=== PATIENT | male | born 1990 ===

== ENCOUNTER 2025-01-12 16:56 | Emergency (ER) | payer OTHER, SELFPAY ==
--- NOTE | ~2025-01-12 | CT_ITS ---
CT HEAD NON-CONTRAST Clinical History: syncope Comparison: None Technique: Unenhanced axial images skull base to vertex Coronal, sagittal reformats CT images acquired with automatic exposure control for dose reduction DLP: 681 mGy-cm Findings: Sulci, ventricles: Unremarkable. No intracerebral hemorrhage. No evidence acute territorial infarct. No mass effect, midline shift. Bony calvarium intact. Visualized paranasal sinuses: Clear. Mastoid air cells: Clear. IMPRESSION: 1. No acute intracranial findings. Reviewed, dictated and finalized at location R.
--- NOTE | ~2025-01-12 | XR_ITS ---
EXAMINATION: XR chest 2V, 01/12/2025 17:32 CDT HISTORY: syncopy COMPARISON: No comparisons available. Technique: 2 views obtained. Findings: The lungs are clear, no effusion. No pneumothorax. Heart is normal size. Mediastinal and hilar contours are within normal limits. Bony thorax no acute abnormality. Impression: No acute cardiopulmonary abnormality. Reviewed, dictated and finalized at location P. Impression: No acute cardiopulmonary abnormality.
--- NOTE | ~2025-01-12 | CT_ITS ---
EXAMINATION: CTA brain carotid DATE: 01/12/2025 22:42 INDICATION: Right-sided headache. Neck pain. Dizziness. TECHNIQUE: Computed tomographic angiography (CTA) of the head was performed with 100 mL Omnipaque-350 intravenous contrast. CTA of the neck was performed with intravenous contrast. Automated exposure control and iterative reconstruction technique were employed. The dose-length product was 1020.04 mGy-cm. Maximum intensity projection and volume rendered 3D-reconstructions were created by the technologist on a separate workstation. COMPARISON: Head CT 01/12/2025 FINDINGS: HEAD CTA: There is no intracranial hemorrhage, acute infarction, or abnormal intracranial mass lesion. The ventricles are normal in size. There is mild mucosal thickening in the paranasal sinuses. The mastoid air cells are normal. The orbits are normal. The vertebral arteries are codominant. There is no significant stenosis of basilar artery or the posterior cerebral arteries. The posterior communicating arteries are normal. There is no significant stenosis of the intracranial internal carotid arteries or anterior or middle cerebral arteries. Anterior communicating artery is normal. There is no aneurysm. NECK CTA: There are no pathologically enlarged lymph nodes. There is no significant stenosis of the vertebral arteries. There is no visible plaque in the proximal internal carotid arteries. There is 0% stenosis of the proximal right internal carotid artery relative to normal distal artery lumen diameter (NASCET criteria). There is 0% stenosis of the proximal left internal carotid artery relative to normal distal artery lumen diameter. There is moderate cervical spondylosis. T1 is a butterfly segment. IMPRESSION: 1. Normal brain. 2. No aneurysm or significant intracranial arterial stenosis. 3. 0% stenosis of the proximal internal carotid arteries relative to normal distal artery lumen diameters (NASCET criteria). Reviewed, dictated and finalized at location E. IMPRESSION: 1. Normal brain. 2. No aneurysm or significant intracranial arterial stenosis. 3. 0% stenosis of the proximal internal carotid arteries relative to normal dis corey artery lumen diameters (NASCET criteria).
[2025-01-12 16:58] VITALS: BP 138/85; PULSE 79; RESP 16; TEMP 36.6; O2SAT 100
--- NOTE | 2025-01-12 17:02 | ECG_ITS ---
Test Date: 2025-01-12 17:06:05 Measurements Intervals [place] Rate: 78 P: 5 CA: 141 QRS: 82 QRSD: 109 T: 10 QT: 358 QTc: 408 Interpretive Statements SINUS RHYTHM NONSPECIFIC ST & T-WAVE ABNORMALITY- INFERIOR LEADS BASELINE ARTIFACT- I, II, V4-V6 BORDERLINE ECG No previous ECG available for comparison Electronically Signed On 01-12-2025 17:40:20 CDT by Rolan Gregory D.O.
[2025-01-12 17:19] LABS: Hematocrit 41.9 % (42.0-52.0); Hemoglobin 14.8 g/dL (14.0-18.0); Immature Granulocyte Percent A 0.1 % (0-0.5); Lymphocytes Absolute Auto 2.72 K/mm3 (0.9-3.2); Mean Corpuscular HGB Conc 35.3 g/dl (32-36); Mean Corpuscular Hemoglobin 32.0 pg (26-34); Mean Corpuscular Volume 90.5 fl (80-100); Nucleated Red Blood Cells Absolute Auto 0.000 K/mm3 (0.0-0.012); Nucleated Red Blood Cells Perc 0.0 % (0.0-0.2); Platelet Count Result 319 k/mm3 (150-375); Red Blood Count 4.63 M/mm3 (4.6-6.20); White Blood Count 7.3 K/mm3 (4.5-10.0)
[2025-01-12 17:29] LABS: Alanine Aminotransferase 56 U/L (6-50); Albumin Level 4.8 g/dL (3.5-5.1); Alkaline Phosphatase 62 U/L (38-126); Anion Gap 8 mmol/L (4-12); Aspartate Amino Transferase 36 U/L (17-59); Bilirubin,Total 0.8 mg/dL (0.2-1.3); Blood Urea Nitrogen 17 mg/dL (9-20); Calcium 9.5 mg/dL (8.4-10.2); Carbon Dioxide 28 mmol/L (22-30); Chloride 101 mmol/L (98-107); Estimated CRCL calculation 94 ml/min; Estimated Glomerular Filt Rate > 60; Glucose 94 mg/dL (65-110); Potassium 4.1 mmol/L (3.4-5.0); Sodium 137 mmol/L (137-145); Total Protein 8.1 g/dL (6.3-8.2)
--- NOTE | 2025-01-12 18:21 | ED_ITS ---
HPI - General Adult General Chief complaint: Syncope <Lilibeth Pina August, MEDICAL BILLING COORDINATOR - Last Filed: 01/12/25 18:55> Stated complaint: syncopy <Lilibeth Pina August, - Last Filed: 01/12/25 18:55> Time Seen by Provider: 01/12/25 18:21 <Lilibeth Pina August, - Last Filed: 01/12/25 18:55> Focused HPI: Niles Musa is a 34 y/o male reports of having a syncope episode about 5 days ago, it was witnessed by a friend, he was starting to fall and was caught. He was then walked outside and then he went completely out and was layed down where he was out for about 10-15 seconds and when he came to he was diaphoretic, and confused. Since this he has had some intermittent blurry vision, headaches, dizziness, feeling light headed, numbness on the right side of neck. GENERAL: Well-appearing, well-nourished, and in no acute distress. HEAD: Normocephalic, atraumatic. CHEST: Clear to auscultation. ?No respiratory distress. HEART: Regular rate and rhythm.? NEURO: ?Alert and oriented x3. Patient screened in triage and initial orders placed.? ?Additional care and disposition to be based upon?diagnostic testing and treatment. <Lilibeth Pina August, - Last Filed: 01/12/25 18:55> History of Present Illness HPI narrative: Patient presents with report intermittent dizziness. He describes it as a lightheaded sensation. Denies any sensation that he is falling when otherwise rest. Denies any gait instability. Denies any rotation or spinning movement your cell for room. Denies any ear pain tinnitus or hearing changes. Did have an episode at concert 6days ago where he initially experienced near syncope and relied on his he started to fall on but otherwise was conscious and she assisted him in leaving the concert venue but once he outside of the concert venue he did have an episode of syncope and that he lost muscle tone and consciousness otherwise did not fall or strike his head. No ethanol at the time this injury although he had had 1 hit of marijuana. Reports that while he does not use marijuana regularly, did not necessarily feel like he was stoned. There had been no acute position changes prior to him feeling symptomatic initially although rather he had been standing for a while several hours at that point. reports that he lost consciousness and muscle for approximately 10-15 seconds this and then pull in his back to his baseline mentation. No report of any demonstrated seizure activity and but he was not incontinent of bowel bladder nor did he have any tongue trauma. 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 He states that he feels like he has decreased sensation in his right face. He has also had right head and neck paresthesias and feels like there is a photosensitivity component. His headache is located at his right brow as right posterior scalp. No fevers or eye pain. No history CHF. He did feel short breath. He has felt like his depth perception is off. He has felt fatigued/weak. Lives with who has not been having any symptoms. <Lynne Rodriguez MD - Last Filed: 01/14/25 08:40> Related Data Allergies/adverse reactions: Allergies Allergy/AdvReac Type Severity Reaction Status Date / Time No Known Allergies Allergy Verified 01/12/25 17:02 <Lilibeth Iqbal MEDICAL BILLING COORDINATOR - Last Filed: 01/12/25 18:55> [facility] Social History Social History: Social History (Updated 01/14/25 @ 08:28 by Lynne Rodriguez MD) Social History: [place] Substance use type: marijuana Other substance usage details: occasional Living arrangements: with family Additional living arrangements comments: Occupation/Education: occupation Additional occupation/education comments: client delivery specialist; also teaches children music <Lilibeth Iqbal, MEDICAL BILLING COORDINATOR - Last Filed: 01/12/25 18:55> Exam 2 Narrative: GENERAL: Well-appearing, well-nourished, and in no acute distress. HEAD: Normocephalic, atraumatic. EYES: Non injected, non icteric. PERRL; EOMI without nystagmus horizontally or vertically. ENT: Nares clear, no rhinorrhea or epistaxis. Gross auditory acuity intact. Mild erythema in the right external auditory canal but with no vesicles, effusion, bulging, perforated TM which is otherwise visualized and normal/pearly ch. Left ear with scant cerumen; easily visualized TM however. No abnormalities in left EAC. NECK: Supple. No meningismus. Performs full ROM. CHEST: Speaking in full sentences. No respiratory distress. HEART: Regular rate and rhythm. . ABDOMEN: Soft, nondistended. EXTREMITIES: Normal range of motion. Moving all extremities x4. SKIN: Warm, dry, no rash. NEURO: No focal deficits. Alert and oriented. Answering questions. Following commands. Normal speech without aphasia or dysarthria. patient reports diminished sensation in first branch of cranial nerve 5 (i.e. V1) on the right but otherwise symmetric motor engagement bilaterally of this cranial nerve ( no loss of nasolabial fold, able to furrow brow symmetrically, and closes eyes tightly ). PSYCH: Normal mood and affect. <Lynne Rodriguez MD - Last Filed: 01/14/25 08:40> Course Vital Signs Vital signs: Vital Signs Temperature 97.8 F 01/12/25 16:58 Pulse Rate 79 01/12/25 16:58 Respiratory Rate 16 01/12/25 16:58 Blood Pressure 138/85 01/12/25 16:58 Pulse Oximetry 100 01/12/25 16:58 Temperature 97.8 F 01/12/25 16:58 Pulse Rate 63 01/13/25 00:43 Respiratory Rate 15 01/13/25 00:43 Blood Pressure 104/70 01/13/25 00:43 Pulse Oximetry 99 01/13/25 00:43 <Lilibeth Iqbal APRN - Last Filed: 01/12/25 18:55> Vital Signs Temperature 97.8 F 01/12/25 16:58 Pulse Rate 79 01/12/25 16:58 Respiratory Rate 16 01/12/25 16:58 Blood Pressure 138/85 01/12/25 16:58 Pulse Oximetry 100 01/12/25 16:58 Temperature 97.8 F 01/12/25 16:58 Pulse Rate 63 01/13/25 00:43 Respiratory Rate 15 01/13/25 00:43 Blood Pressure 104/70 01/13/25 00:43 Pulse Oximetry 99 01/13/25 00:43 <Lynne Rodriguez MD - Last Filed: 01/14/25 08:40> Medical Decision Making MDM Narrative Medical decision making narrative: Patient presents with report of dizziness as well as some right head and neck pain paresthesia particularly occurring in this area as well as his right forehead. No neurological deficits on exam. Patient also had approximately 1 week ago what started as a near syncopal episode was what sounds to be a syncopal episode given the combination of lack of muscle tone and consciousness for a brief, less 15 seconds. Otherwise without witnessed seizure activity, incontinence, or tongue trauma. In the emergency department they are afebrile with vital signs within normal limits. D-dimer within normal limits. Will not proceed with further workup for this. CBC with mildly abnormal hematocrit but hemoglobin is normal. [place] Syncope Rule: Congestive heart failure history: No Hematocrit <30%: 0 EKG abnormal (changed or any non-sinus rhythm): 0 SOB symptoms: No SBP <90mmHg at triage: 0 CT brain noncontrast normal as below. DIFFERENTIAL DIAGNOSES Considered various etiologies of syncope/near-syncope including cardiogenic, vasovagal, orthostatic, etc.. In particular the symptoms sound consistent with vagal etiology given he had been standing for several hours preceding this event. Considered the effects of trauma. Patient's head pain is likely to be benign such as tension headache, migraine, or other headache of nonemergent etiology. Low suspicion for subarachnoid hemorrhage given patient has had a has been not maximal at onset. Unlikely subdural or epidural hematoma given no history of trauma. Unlikely meningitis given afebrile, no meningismus. Unlikely temporal arteritis given patient's age and lack of tenderness in the confucianist area. Likely acute angle glaucoma blood given PERRL and no eye pain. Unlikely carbon monoxide poisoning given no other house members with similar symptoms. Central causes: infection ( encephalitis, meningitis, cerebritis); vertebrobasilar arterial insufficiency, subclavian steal syndrome, cerebellar or brainstem hemorrhage or infarction, vertebrobasilar migraine, trauma ( temporal bone fracture, post concussive syndrome); tumor (brainstem or cerebellum); MS; temporal lobe epilepsy Peripheral causes: Foreign body, cerumen impaction, acute otitis media, labyrinthitis, benign paroxysmal positional vertigo, Meniere's disease, vestibular neuronitis, perilymphatic fistula, trauma, motion sickness, acoustic neuroma, ototoxic medications Considered shingles including [place] Laurent and Severance palsy . Meclizine given as first line agent although symptoms do not sound consistent with BPPV.. Isolated ALT elevation with no prior for comparison. Urinalysis unremarkable. Normal troponin. Orthostatics are reviewed and acceptable. More importantly, he reports that he you was asymptomatic during this assessment. When patient is reassessed at 11:15 p.m. he states that his symptoms have improved. We will defer ordering second-line agent. The exact etiology of patient's symptoms remains unclear after his extensive workup although he is otherwise feeling better. I did advise he follow up. Did state that he felt better after meclizine although his symptoms were not consistent with BPPV this is relatively safe medication and so he was discharged with a prescription for this. Encouraged follow-up in the outpatient setting and return with any new or worsening symptoms. Otherwise stable for discharge. <Lynne Rodriguez MD - Last Filed: 01/14/25 08:40> Vital Signs Vital Signs: Vital Signs Temperature 97.8 F 01/12/25 16:58 Pulse Rate 79 01/12/25 16:58 Respiratory Rate 16 01/12/25 16:58 Blood Pressure 138/85 01/12/25 16:58 Pulse Oximetry 100 01/12/25 16:58 Temperature 97.8 F 01/12/25 16:58 Pulse Rate 63 01/13/25 00:43 Respiratory Rate 15 01/13/25 00:43 Blood Pressure 104/70 01/13/25 00:43 Pulse Oximetry 99 01/13/25 00:43 <Lilibeth Iqbal APRN - Last Filed: 01/12/25 18:55> Vital Signs Temperature 97.8 F 01/12/25 16:58 Pulse Rate 79 01/12/25 16:58 Respiratory Rate 16 01/12/25 16:58 Blood Pressure 138/85 01/12/25 16:58 Pulse Oximetry 100 01/12/25 16:58 Temperature 97.8 F 01/12/25 16:58 Pulse Rate 63 01/13/25 00:43 Respiratory Rate 15 01/13/25 00:43 Blood Pressure 104/70 01/13/25 00:43 Pulse Oximetry 99 01/13/25 00:43 <Lynne Rodriguez MD - Last Filed: 01/14/25 08:40> Lab Data Lab results reviewed: Yes I reviewed the patient's lab results. <Lynne Rodriguez MD - Last Filed: 01/14/25 08:40> Result diagrams: 01/12/25 17:14 01/12/25 17:14 <Lilibeth Iqbal APRN - Last Filed: 01/12/25 18:55> Labs: Lab Results 01/12/25 01/12/25 01/12/25 Range/Units 17:13 17:13 17:14 WBC 7.3 (4.5-10.0) K/mm3 RBC 4.63 (4.6-6.20) M/mm3 Hgb 14.8 (14.0-18.0) g/dL Hct 41.9 L (42.0-52.0) % MCV 90.5 (80-100) fl MCH 32.0 (26-34) pg MCHC 35.3 (32-36) g/dl RDW 11.9 (11.5-14.5) % Plt Count 319 (150-375) k/mm3 MPV 9.1 (7.4-10.4) fl Immature Gran % (Auto) 0.1 (0-0.5) % Neut % (Auto) 53.8 (45.5-73.1) % Lymph % (Auto) 37.1 (18.3-44.2) % Evangeline % (Auto) 7.2 (2.6-8.5) % Eos % (Auto) 1.1 (0-4.4) % Baso % (Auto) 0.7 (0.2-1.2) % Lymph # (Auto) 2.72 (0.9-3.2) K/mm3 Evangeline # (Auto) 0.5 (0.1-0.6) K/mm3 Eos # (Auto) 0.1 (0-0.3) K/mm3 Baso # (Auto) 0.1 (0.0-0.1) K/mm3 Abs Immat Gran (auto) 0.01 (0.00-0.031) K/mm3 Absolute Neuts (auto) 3.9 (1.3-6.7) K/mm3 Absolute Nucleated RBC 0.000 (0.0-0.012) K/mm3 Nucleated RBC % 0.0 (0.0-0.2) % D-Dimer < 0.27 (<0.48) ug/mL Sodium 137 (137-145) mmol/L Potassium 4.1 (3.4-5.0) mmol/L Chloride 101 (98-107) mmol/L Carbon Dioxide 28 (22-30) mmol/L Anion Gap 8 (4-12) mmol/L BUN 17 (9-20) mg/dL Creatinine 1.08 (0.7-1.3) mg/dL Estim Creat Clear Calc 94 ml/min Estimated GFR > 60 (59 - ) Glucose 94 (65-110) mg/dL Calcium 9.5 (8.4-10.2) mg/dL Magnesium 2.0 (1.6-2.3) mg/dL Total Bilirubin 0.8 (0.2-1.3) mg/dL AST 36 (17-59) U/L ALT 56 H (6-50) U/L Alkaline Phosphatase 62 (38-126) U/L Troponin I < 0.012 Cancelled (0.000-0.034) ng/mL NT-Pro-B Natriuret Pep < 20 (19.9-100) pg/mL Total Protein 8.1 (6.3-8.2) g/dL Albumin 4.8 (3.5-5.1) g/dL Urine Color (Yellow) Urine Appearance (Clear) Urine pH (5.0-9.0) Ur Specific [place] (1.001-1.035) Urine Protein (Negative) mg/dL Urine Glucose (UA) (Negative) mg/dL Urine Ketones (Negative) mg/dL Ur Blood (Man) (Negative) Urine Nitrate (Negative) Urine Bilirubin (Negative) Urine Urobilinogen (<2.0) mg/dL Leukocyte Esterase Rfl (Negative) RANI/UL 01/12/25 Range/Units 21:30 WBC (4.5-10.0) K/mm3 RBC (4.6-6.20) M/mm3 Hgb (14.0-18.0) g/dL Hct (42.0-52.0) % MCV (80-100) fl MCH (26-34) pg MCHC (32-36) g/dl RDW (11.5-14.5) % Plt Count (150-375) k/mm3 MPV (7.4-10.4) fl Immature Gran % (Auto) (0-0.5) % Neut % (Auto) (45.5-73.1) % Lymph % (Auto) (18.3-44.2) % Evangeline % (Auto) (2.6-8.5) % Eos % (Auto) (0-4.4) % Baso % (Auto) (0.2-1.2) % Lymph # (Auto) (0.9-3.2) K/mm3 Evangeline # (Auto) (0.1-0.6) K/mm3 Eos # (Auto) (0-0.3) K/mm3 Baso # (Auto) (0.0-0.1) K/mm3 Abs Immat Gran (auto) (0.00-0.031) K/mm3 Absolute Neuts (auto) (1.3-6.7) K/mm3 Absolute Nucleated RBC (0.0-0.012) K/mm3 Nucleated RBC % (0.0-0.2) % D-Dimer (<0.48) ug/mL Sodium (137-145) mmol/L Potassium (3.4-5.0) mmol/L Chloride (98-107) mmol/L Carbon Dioxide (22-30) mmol/L Anion Gap (4-12) mmol/L BUN (9-20) mg/dL Creatinine (0.7-1.3) mg/dL Estim Creat Clear Calc ml/min Estimated GFR (59 - ) Glucose (65-110) mg/dL Calcium (8.4-10.2) mg/dL Magnesium (1.6-2.3) mg/dL Total Bilirubin (0.2-1.3) mg/dL AST (17-59) U/L ALT (6-50) U/L Alkaline Phosphatase (38-126) U/L Troponin I (0.000-0.034) ng/mL NT-Pro-B Natriuret Pep (19.9-100) pg/mL Total Protein (6.3-8.2) g/dL Albumin (3.5-5.1) g/dL Urine Color Yellow (Yellow) Urine Appearance Clear (Clear) Urine pH 6.5 (5.0-9.0) Ur Specific [place] 1.017 (1.001-1.035) Urine Protein Negative (Negative) mg/dL Urine Glucose (UA) Negative (Negative) mg/dL Urine Ketones Negative (Negative) mg/dL Ur Blood (Man) Negative (Negative) Urine Nitrate Negative (Negative) Urine Bilirubin Negative (Negative) Urine Urobilinogen 0.2 (<2.0) mg/dL Leukocyte Esterase Rfl Negative (Negative) RANI/UL <Lilibeth EmirDaren Iqbal, MEDICAL BILLING COORDINATOR - Last Filed: 01/12/25 18:55> Lab Results 01/12/25 01/12/25 01/12/25 Range/Units 17:13 17:13 17:14 WBC 7.3 (4.5-10.0) K/mm3 RBC 4.63 (4.6-6.20) M/mm3 Hgb 14.8 (14.0-18.0) g/dL Hct 41.9 L (42.0-52.0) % MCV 90.5 (80-100) fl MCH 32.0 (26-34) pg MCHC 35.3 (32-36) g/dl RDW 11.9 (11.5-14.5) % Plt Count 319 (150-375) k/mm3 MPV 9.1 (7.4-10.4) fl Immature Gran % (Auto) 0.1 (0-0.5) % Neut % (Auto) 53.8 (45.5-73.1) % Lymph % (Auto) 37.1 (18.3-44.2) % Evangeline % (Auto) 7.2 (2.6-8.5) % Eos % (Auto) 1.1 (0-4.4) % Baso % (Auto) 0.7 (0.2-1.2) % Lymph # (Auto) 2.72 (0.9-3.2) K/mm3 Evangeline # (Auto) 0.5 (0.1-0.6) K/mm3 Eos # (Auto) 0.1 (0-0.3) K/mm3 Baso # (Auto) 0.1 (0.0-0.1) K/mm3 Abs Immat Gran (auto) 0.01 (0.00-0.031) K/mm3 Absolute Neuts (auto) 3.9 (1.3-6.7) K/mm3 Absolute Nucleated RBC 0.000 (0.0-0.012) K/mm3 Nucleated RBC % 0.0 (0.0-0.2) % D-Dimer < 0.27 (<0.48) ug/mL Sodium 137 (137-145) mmol/L Potassium 4.1 (3.4-5.0) mmol/L Chloride 101 (98-107) mmol/L Carbon Dioxide 28 (22-30) mmol/L Anion Gap 8 (4-12) mmol/L BUN 17 (9-20) mg/dL Creatinine 1.08 (0.7-1.3) mg/dL Estim Creat Clear Calc 94 ml/min Estimated GFR > 60 (59 - ) Glucose 94 (65-110) mg/dL Calcium 9.5 (8.4-10.2) mg/dL Magnesium 2.0 (1.6-2.3) mg/dL Total Bilirubin 0.8 (0.2-1.3) mg/dL AST 36 (17-59) U/L ALT 56 H (6-50) U/L Alkaline Phosphatase 62 (38-126) U/L Troponin I < 0.012 Cancelled (0.000-0.034) ng/mL NT-Pro-B Natriuret Pep < 20 (19.9-100) pg/mL Total Protein 8.1 (6.3-8.2) g/dL Albumin 4.8 (3.5-5.1) g/dL Urine Color (Yellow) Urine Appearance (Clear) Urine pH (5.0-9.0) Ur Specific [place] (1.001-1.035) Urine Protein (Negative) mg/dL Urine Glucose (UA) (Negative) mg/dL Urine Ketones (Negative) mg/dL Ur Blood (Man) (Negative) Urine Nitrate (Negative) Urine Bilirubin (Negative) Urine Urobilinogen (<2.0) mg/dL Leukocyte Esterase Rfl (Negative) RANI/UL 01/12/25 Range/Units 21:30 WBC (4.5-10.0) K/mm3 RBC (4.6-6.20) M/mm3 Hgb (14.0-18.0) g/dL Hct (42.0-52.0) % MCV (80-100) fl MCH (26-34) pg MCHC (32-36) g/dl RDW (11.5-14.5) % Plt Count (150-375) k/mm3 MPV (7.4-10.4) fl Immature Gran % (Auto) (0-0.5) % Neut % (Auto) (45.5-73.1) % Lymph % (Auto) (18.3-44.2) % Evangeline % (Auto) (2.6-8.5) % Eos % (Auto) (0-4.4) % Baso % (Auto) (0.2-1.2) % Lymph # (Auto) (0.9-3.2) K/mm3 Evangeline # (Auto) (0.1-0.6) K/mm3 Eos # (Auto) (0-0.3) K/mm3 Baso # (Auto) (0.0-0.1) K/mm3 Abs Immat Gran (auto) (0.00-0.031) K/mm3 Absolute Neuts (auto) (1.3-6.7) K/mm3 Absolute Nucleated RBC (0.0-0.012) K/mm3 Nucleated RBC % (0.0-0.2) % D-Dimer (<0.48) ug/mL Sodium (137-145) mmol/L Potassium (3.4-5.0) mmol/L Chloride (98-107) mmol/L Carbon Dioxide (22-30) mmol/L Anion Gap (4-12) mmol/L BUN (9-20) mg/dL Creatinine (0.7-1.3) mg/dL Estim Creat Clear Calc ml/min Estimated GFR (59 - ) Glucose (65-110) mg/dL Calcium (8.4-10.2) mg/dL Magnesium (1.6-2.3) mg/dL Total Bilirubin (0.2-1.3) mg/dL AST (17-59) U/L ALT (6-50) U/L Alkaline Phosphatase (38-126) U/L Troponin I (0.000-0.034) ng/mL NT-Pro-B Natriuret Pep (19.9-100) pg/mL Total Protein (6.3-8.2) g/dL Albumin (3.5-5.1) g/dL Urine Color Yellow (Yellow) Urine Appearance Clear (Clear) Urine pH 6.5 (5.0-9.0) Ur Specific [place] 1.017 (1.001-1.035) Urine Protein Negative (Negative) mg/dL Urine Glucose (UA) Negative (Negative) mg/dL Urine Ketones Negative (Negative) mg/dL Ur Blood (Man) Negative (Negative) Urine Nitrate Negative (Negative) Urine Bilirubin Negative (Negative) Urine Urobilinogen 0.2 (<2.0) mg/dL Leukocyte Esterase Rfl Negative (Negative) RANI/UL <Lynne Rodriguez MD - Last Filed: 01/14/25 08:40> Imaging Data Radiologist's impression: Impressions Chest X-Ray 01/12/25 17:44 Impression: No acute cardiopulmonary abnormality. Head CT 01/12/25 18:55 IMPRESSION: 1. No acute intracranial findings. CTA Neck Stat Rad: unremarkable arterial structures without flow limitation. No acute finding CTA head stat rad: No large vessel occlusion. Unremarkable arteries are seen. If there is concern for stroke recommend on MRI <Lynne Rodriguez MD - Last Filed: 01/14/25 08:40> ECG Data EKG #1: Attestation: I personally reviewed and interpreted this ECG as follows: < Lynne Rodriguez MD - Last Filed: 01/14/25 08:40> ECG completion date: 01/12/25 <Lynne Rodriguez MD - Last Filed: 01/14/25 08:40> ECG completion time: 17:06 <Lynne Rodriguez MD - Last Filed: 01/14/25 08:40> Interpretation: Normal sinus rhythm at a rate of 78 beats per minute. UT interval 141. QRS 109. QT/QTC 358/408. Good R-wave progression across the precordial leads. T-wave inversion in 3 but otherwise upright in contiguous inferior lead 2 and upright verses mildly flat but not inverted in AVF. No other T-wave inversions. <Lynne Rodriguez MD - Last Filed: 01/14/25 08:40> Discharge Plan Discharge Clinical Impression: Episode of syncope, Dizziness, Paresthesia <Lilibeth Iqbal APRN - Last Filed: 01/12/25 18:55> Patient Disposition: Home <Lilibeth Iqbal APRN - Last Filed: 01/12/25 18:55> Condition: Stable <Lilibeth Pina August, - Last Filed: 01/12/25 18:55> Instructions: Antibiotic Form, Syncope (DC), Paresthesia (ED), Dizziness (ED) <Lilibeth Pina August - Last Filed: 01/12/25 18:55> Additional Instructions: No clear cause of your symptoms based on your labs, EKG, chest xray, and CT noncontrast brain and CTA (with contrast) brain and neck. Because you improved after the medication, reasonable to discharge with the same prescription given low harm in doing so. Recommend following up with your primary care physician. Return to the emergency department any new or worsening symptoms <Lilibeth Pina August MEDICAL BILLING COORDINATOR - Last Filed: 01/12/25 18:55> Patient Language: Sinhala <Lilibeth Pina August, - Last Filed: 01/12/25 18:55> Prescriptions: New meclizine 25 mg tablet,chewable 25 mg PO DAILY PRN (Reason: dizziness) Qty: 30 0RF <Lilibeth Pina August, - Last Filed: 01/12/25 18:55> Follow-up/Referrals: Shannon,DO Keshav [Primary Care Provider] <Lilibeth Pina August, - Last Filed: 01/12/25 18:55> Stand Alone Forms: Work/School Release IP <Lilibeth Pina August - Last Filed: 01/12/25 18:55> Time of Disposition: 23:52 <Lilibeth Iqbal MEDICAL BILLING COORDINATOR - Last Filed: 01/12/25 18:55> 23:52 <Lynne Rodriguez MD - Last Filed: 01/14/25 08:40>
[2025-01-12 19:29] LABS: Magnesium 2.0 mg/dL (1.6-2.3)
[2025-01-12 19:40] LABS: Troponin I < 0.012 ng/mL (0.000-0.034)
--- NOTE | 2025-01-12 20:25 | PC.NURSE ---
Lab called to add on ordered meds.
[2025-01-12 20:46] LABS: NT Pro B Type Natriuretic Pept < 20 pg/mL (19.9-100)
[2025-01-12 21:38] LABS: Add Urine Microscopic? NO; Appearance Urine Clear (Clear); Glucose Urine UA Negative (Negative); Leukocyte Esterase Ur Negative LEU/UL (Negative); Nitrate Urine Negative (Negative); Specific Grav Ur 1.017 (1.001-1.035)
--- NOTE | 2025-01-12 21:38 | PC.NURSE ---
Dr. Rodriguez at bedside talking with pt. and pt. .
[2025-01-12] MEDS: MECLIZINE HCL 25 MG TABLET PO (22:26)
--- NOTE | 2025-01-12 22:32 | PC.NURSE ---
Pt. to CT.
[2025-01-12 22:45] VITALS: BP 130/72; PULSE 60
[2025-01-12 22:46] VITALS: BP 134/82; PULSE 69
[2025-01-12 22:48] VITALS: BP 129/79; PULSE 70
[2025-01-13 00:38] VITALS: BP 104/70; PULSE 63; RESP 15; O2SAT 99
[2025-01-13 00:43] VITALS: BP 104/70; PULSE 63; RESP 15; O2SAT 99
== END 2025-01-13 00:45 | disposition home or self-care (01) ==
PROVIDERS: Emergency Medicine; Nurse Practitioner Family; Emergency Provider Student in an Organized Health Care Education/Training Program; PCP Student in an Organized Health Care Education/Training Program
DX: R55 Syncope and collapse (principal); R42 Dizziness and giddiness; R20.2 Paresthesia of skin; R94.31 Abnormal electrocardiogram [ECG] [EKG]
CPT/HCPCS: 36415; 70450; 70496; 70498; 71046; 80053; 81003; 83735; 83880; 84484; 85025; 85380; 93005; 99284; A9270; Q9967